=== PATIENT | female | born 1995 | race Caucasian/White ===

== ENCOUNTER → 2021-11-24 00:30 | Observation (INO) ==
[2021-11-23 22:32] LABS: Bilirubin,Urine Negative (Negative); Blood,Urine Negative (Negative); Clarity,Urine Clear (Clear); Color,Urine Light-Yellow (Yellow); Glucose,Urine (UA) Normal (Normal); Ketones,Urine Negative (Negative); Leukocyte Esterase,Urine Negative (Negative); Nitrite,Urine Negative (Negative); Protein,Urine Negative (Neg-Trace); Specific Gravity,Urine 1.015 (1.010-1.025); Urobilinogen,Urine Normal (Normal)
[2021-11-24 00:18] LABS: Candida DNA Not Detected (Not Detect); Gardnerella DNA Not Detected (Not Detect); Trichomonas DNA Not Detected (Not Detect)
== END | disposition home or self-care (01) ==
LOC: 1NENULAB
PROVIDERS: ADMIT Advanced Practice Midwife; ATTEND Advanced Practice Midwife

== ENCOUNTER → 2022-01-03 12:30 | Observation (INO) ==
[2022-01-03 12:14] LABS: Bilirubin,Urine Negative (Negative); Blood,Urine Negative (Negative); Clarity,Urine Clear (Clear); Color,Urine Yellow (Yellow); Glucose,Urine (UA) Normal (Normal); Ketones,Urine Negative (Negative); Leukocyte Esterase,Urine Negative (Negative); Nitrite,Urine Negative (Negative); PH,Urine 6.5 pH Units (5.0-8.0); Protein,Urine Trace mg/dL (Neg-Trace); Specific Gravity,Urine > 1.030 (1.010-1.025)
== END | disposition home or self-care (01) ==
LOC: 1NENULAB
PROVIDERS: ADMIT Obstetrics & Gynecology; ATTEND Obstetrics & Gynecology

== ENCOUNTER 2022-03-08 17:00 | Inpatient (IN) ==
[2022-03-08] MEDS ORDERED: Metoclopramide 10 MG/2 ML VIAL IVP PRN (17:12)
[2022-03-08] MEDS ORDERED: Naloxone 0.4 MG/ML INJ IVP PRN (17:12)
[2022-03-08] MEDS ORDERED: Famotidine 20 MG/2 ML VIAL IVP PRN (17:12)
[2022-03-08] MEDS ORDERED: Penicillin G Potassium 5,000,000 UNIT in 0.9 % Sodium Chloride Mini Bag 100 ML IVPB ONE (18:09)
[2022-03-08 18:16] LABS: Basophils % 0.3 %; Eosinophils # 0.1 K/mcL (0.0-0.6); Eosinophils % 1.4 %; Hematocrit 33.1 % (35.3-44.9); Hemoglobin 11.2 g/dL (11.5-15.4); Immature Granulocytes % 0.7 % (0-4); Lymphocytes # 2.4 K/mcL (0.6-4.6); Lymphocytes % 27.3 %; Mean Corpuscular HGB Conc 33.8 g/dL (31.6-35.5); Mean Corpuscular Hemoglobin 30.7 pg (28.0-33.3); Mean Corpuscular Volume 90.7 fL (83.0-100.0); Mean Platelet Volume 10.6 fL (9.4-12.4); Monocytes # 0.5 K/mcL (0.0-1.3); Monocytes % 5.7 %; Neutrophils # 5.7 K/mcL (1.6-8.9); Platelet Count 204 K/mcL (140-400); Red Blood Count 3.65 M/mcL (3.82-4.97); Red Cell Distribution Width 12.9 % (11.5-14.5); Segmented Neutrophils % 64.6 %; White Blood Count 8.8 K/mcL (4.3-11.1)
[2022-03-08 18:26] LABS: Amphetamine Screen,Urine Negative ng/mL (Cutoff=1000); Barbiturate Screen,Urine Negative ng/mL (Cutoff=200); Benzodiazepines Screen,Urine Negative ng/mL (Cutoff=200); Cannabinoid Screen,Urine Negative ng/mL (Cutoff = 50); Cocaine Screen,Urine Negative ng/mL (Cutoff= 300); Opiate Screen,Urine Negative ng/mL (Cutoff=300); Phencyclidine Screen,Urine Negative ng/mL (Cutoff=25)
[2022-03-08] MEDS ORDERED: Penicillin G Potassium 2,500,000 UNIT/105 ML MLS IVPB SCH (22:00)
[2022-03-09] MEDS ORDERED: miSOPROStoL 25 MCG TABLET VG SCH (08:30)
[2022-03-09] MEDS ORDERED: Penicillin G Potassium 5,000,000 UNIT in 0.9 % Sodium Chloride Mini Bag 100 ML IVPB ONE (08:32)
[2022-03-09] MEDS: Ringers Solution, Lactated 1,000 ML IVC SCH (08:34)
[2022-03-09] MEDS ORDERED: *HR* FentaNYL (PF) 100 MCG/2 ML VIAL IVP PRN (08:53)
[2022-03-09] MEDS ORDERED: Ondansetron 4 MG/2 ML VIAL IVP PRN (08:53)
[2022-03-09] MEDS ORDERED: Lidocaine -MPF 1% 5 ML AMPUL INFILT PRN (08:53)
[2022-03-09] MEDS ORDERED: *HR* Buprenorphine HCl 2 MG SUBLINGUAL TABLET SL SCH (09:00)
[2022-03-09] MEDS: Penicillin G Potassium 2,500,000 UNIT/105 ML MLS IVPB SCH ×3 (12:50→21:23)
[2022-03-09] MEDS ORDERED: Oxytocin 30 UNIT/503 ML BAG IVC SCH (13:15)
[2022-03-09] MEDS: *HR* Nalbuphine 10 MG/ML AMPUL IV PRN ×2 (15:22→21:27)
[2022-03-09] MEDS ORDERED: EPHEDrine sulfate 50 MG/10 ML VIAL IVP PRN (22:09)
[2022-03-09] MEDS ORDERED: Ropivacaine/PF 0.2% 20 ML VIAL EP ONE (22:09)
[2022-03-09] MEDS ORDERED: *HR* FentaNYL (PF) 100 MCG/2 ML VIAL EP ONE (22:09)
[2022-03-09] MEDS ORDERED: *HR* FentaNYL (PF) 100 MCG/2 ML VIAL ONE (22:13)
[2022-03-09] MEDS ORDERED: Ropivacaine/PF 0.2% 20 ML VIAL ONE (22:13)
[2022-03-09] MEDS ORDERED: Epidural Premix (fent/bupiv) 110 ML EP SCH (22:15)
[2022-03-10] MEDS: Penicillin G Potassium 2,500,000 UNIT/105 ML MLS IVPB SCH (01:45)
[2022-03-10] MEDS: Ringers Solution, Lactated 1,000 ML IVC SCH (01:46)
[2022-03-10] MEDS ORDERED: OXYTOCIN/RINGERS LACTATE 10 UNIT/166.6 ML BAG IVC ONE (04:51)
[2022-03-10] MEDS ORDERED: Lanolin 7 G OINT...G. TP PRN (04:51)
[2022-03-10] MEDS ORDERED: Ondansetron ODT 4 MG TAB.RAPDIS SL PRN (04:51)
[2022-03-10] MEDS ORDERED: Oxytocin 30 UNIT/503 ML BAG IVC SCH (04:51)
[2022-03-10] MEDS ORDERED: Benzocaine/Menthol 56 GM AEROSOL SPRAY TP PRN (04:51)
[2022-03-10] MEDS: Acetaminophen 325 MG TABLET PO SCH ×2 (05:12→20:19)
[2022-03-10] MEDS: Ibuprofen 600 MG TABLET PO SCH ×2 (05:13→20:19)
[2022-03-10] MEDS: *HR* Buprenorphine HCl 2 MG SUBLINGUAL TABLET SL SCH (07:50)
[2022-03-10] MEDS: Prenatal Vit/FA 1 EACH TABLET PO SCH (07:50)
[2022-03-11] MEDS: Ibuprofen 600 MG TABLET PO SCH ×2 (03:58→09:32)
[2022-03-11] MEDS: Acetaminophen 325 MG TABLET PO SCH (03:58)
[2022-03-11 07:23] VITALS: BP 113/64; PULSE 51; TEMP 98; O2SAT 99
[2022-03-11] MEDS: *HR* Buprenorphine HCl 2 MG SUBLINGUAL TABLET SL SCH (09:32)
[2022-03-11] MEDS: Prenatal Vit/FA 1 EACH TABLET PO SCH (09:32)
== END 2022-03-11 12:22 | disposition home or self-care (01) | DRG 560 ==
LOC: 1NENULAB 17:00 → 1NENUOBS 03-10 04:37
PROVIDERS: ADMIT Student in an Organized Health Care Education/Training Program; ATTEND Student in an Organized Health Care Education/Training Program